=== PATIENT | male | born 1960 | race Caucasian/White ===

== ENCOUNTER 2016-10-27 05:51 | Emergency (ER) | payer OTHER ==
[~2016-10-27] VITALS: Ht 172.7 cm; Wt 129.5 kg
[~2016-10-27 05:51] MED LIST: NOHOMEMEDS
[2016-10-27 06:23] LABS: HEMATOCRIT 38.6 % (38.0-50.0); MCH 29.4 PG (29.0-34.0); MCV 84.1 FL (86-99); PLATELET COUNT 238 K/uL (156-360); RBC DIS.WIDTH-CV 12.2 % (11.8-14.6); RBC DIS.WIDTH-SD 36.8 % (39-53); RED BLOOD COUNT 4.59 M/uL (4.00-5.50)
[2016-10-27 06:34] LABS: CHLORIDE 105 mEq/L (99-109); SODIUM 137 mEq/L (136-147)
[2016-10-27 06:36] LABS: GLUCOSE 175 mg/dL (70-99)
[2016-10-27 06:37] LABS: ANION GAP 6 MEQ/L (2-14)
[2016-10-27 06:40] LABS: GFR ESTIMATE (CALCULATED) > 59 mL/min/
[2016-10-27 06:41] LABS: UREA NITROGEN (BUN) 12 mg/dL (9-23)
[2016-10-27] MEDS ORDERED: FIORICET 50-301 EACH PO (09:44)
[2016-10-27 10:03] VITALS: BP 143/89
== END 2016-10-27 10:14 | disposition home or self-care (01) ==
LOC: EME 05:51 → EXP 05:51
DX: R51 Headache (principal); H53.8 Other visual disturbances; H53.2 Diplopia
CPT/HCPCS: 70450; 70551; 80048; 85027; 93005; 99281; 99285

== ENCOUNTER 2016-10-31 11:18 | Emergency (ER) | payer OTHER ==
[~2016-10-31] VITALS: Ht 172.7 cm; Wt 126.2 kg
[~2016-10-31 11:18] MED LIST changes: +FIORICET 50-301 EACH PO
[2016-10-31 13:35] LABS: HEMATOCRIT 39.6 % (38.0-50.0); MCH 29.4 PG (29.0-34.0); MCHC 34.3 G/DL (30.0-36.0); MCV 85.7 FL (86-99); MEAN PLAT.VOLUME 9.2 uM^3 (9.0-12.4); PLATELET COUNT 260 K/uL (156-360); RBC DIS.WIDTH-CV 12.7 % (11.8-14.6); RBC DIS.WIDTH-SD 39.2 % (39-53); RED BLOOD COUNT 4.62 M/uL (4.00-5.50); WHITE BLOOD COUNT 8.6 K/uL (4.1-10.2)
[2016-10-31 14:21] LABS: ALKALINE PHOSPHATASE 49 IU/L (3-129); ANION GAP 10 MEQ/L (2-14); CHLORIDE 106 MEQ/L (99-109); GFR ESTIMATE (CALCULATED) > 59 mL/min/; GLUCOSE 136 mg/dL (70-99); POTASSIUM 3.9 MEQ/L (3.7-5.4); SAMPLE HEMOLYSIS CHECK 0; SAMPLE ICTERIC CHECK 0; SAMPLE LIPEMIA CHECK 0; SODIUM 141 MEQ/L (136-147); TOTAL BILIRUBIN 0.5 MG/DL (0.0-1.0); UREA NITROGEN (BUN) 11 mg/dL (9-23)
[2016-10-31 16:39] VITALS: BP 154/91
== END 2016-10-31 16:46 | disposition home or self-care (01) ==
LOC: EME 11:18
PROVIDERS: Emergency Medicine
DX: H53.2 Diplopia (principal); R51 Headache; I10 Essential (primary) hypertension; G47.30 Sleep apnea, unspecified
CPT/HCPCS: 70450; 70486; 80053; 85027; 99281; 99284